=== PATIENT | female | born 1950 | race Caucasian/White ===

== ENCOUNTER 2020-10-10 18:41 | Emergency (ER) | payer MEDICARE, OTHER | END 2020-10-10 21:50 | disposition home or self-care (01) | LOC: CSHERS 18:41 | DX: K59.00 Constipation, unspecified (principal); E78.5 Hyperlipidemia, unspecified; E78.00 Pure hypercholesterolemia, unspecified; M19.90 Unspecified osteoarthritis, unspecified site; G47.30 Sleep apnea, unspecified | CPT/HCPCS: 74176 ==

== ENCOUNTER 2023-01-10 14:39 | Outpatient (CLI) | payer MEDICARE, OTHER | END 2023-01-10 14:40 | disposition home or self-care (01) | LOC: CSHMRI 14:39 | PROVIDERS: ATTEND Nurse Practitioner Family | DX: M25.551 Pain in right hip (principal); M16.11 Unilateral primary osteoarthritis, right hip ==

== ENCOUNTER 2023-11-13 11:31 | Outpatient (CLI) | payer MEDICARE, OTHER ==
[2023-11-13 12:53] LABS: Anion Gap 12 mmol/L (10-20); BUN (Urea Nitrogen) 11 mg/dL (9.8-20.1); Calc. Creatinine Clearance 0 mL/min (70-130); Calcium 9.3 mg/dL (7.8-10.44); Carbon Dioxide 31 mmol/L (23-31); Chloride 101 mmol/L (98-107); Estimated GFR 91; Glucose 103 mg/dL (83-110); Hematocrit 36.6 % (34.9-44.5); Hemoglobin 11.8 g/dL (12.0-15.5); Potassium 4.3 mmol/L (3.5-5.1); Sodium 140 mmol/L (136-145)
== END 2023-11-13 11:32 | disposition home or self-care (01) ==
LOC: CSHLAB 11:31
PROVIDERS: ATTEND Otolaryngology
DX: Z01.818 Encounter for other preprocedural examination (principal); J32.9 Chronic sinusitis, unspecified; J34.2 Deviated nasal septum; B47.9 Mycetoma, unspecified
CPT/HCPCS: 80048; 85014; 85018; 93005; 93010

== ENCOUNTER 2023-11-18 08:23 | Day surgery (SDC) | payer MEDICARE, OTHER ==
[2023-11-13 12:13] VITALS: BMI 21.7
[2023-11-18] MEDS ORDERED: Oxymetazoline HCl 0.05% ( 15 ML ) ONE ×2 (10:22→10:31)
[2023-11-18] MEDS ORDERED: Lidocaine 1% PF 5 ML VIAL ONE (11:02)
[2023-11-18] MEDS ORDERED: SUGAMMADEX SODIUM 200 MG/2 ML VIAL ONE (11:02)
[2023-11-18] MEDS ORDERED: Ondansetron PF 4 MG/2 ML Vial ONE (11:02)
[2023-11-18] MEDS ORDERED: fentaNYL 50 mcg/mL 1 mL Vial ONE ×2 (11:02→13:33)
[2023-11-18] MEDS ORDERED: PROPOFOL 40 ML ONE (11:02)
[2023-11-18] MEDS ORDERED: Rocuronium Bromide 10 MG/ML (10ML VIAL) ONE (11:02)
[2023-11-18] MEDS ORDERED: Dexamethasone 4 mg/ml Vial ONE (11:02)
[2023-11-18] MEDS ORDERED: Lidocaine 1% (PF) 30 ML VIAL ONE (11:12)
[2023-11-18] MEDS ORDERED: EPINEPHrine 1 MG/ML VIAL ONE ×2 (11:12→12:25)
[2023-11-18] MEDS ORDERED: Tranexamic Acid 1,000 MG/10 ML VIAL ONE (11:47)
[2023-11-18] MEDS ORDERED: Esmolol 100 MG/10 ML VIAL ONE (13:09)
[2023-11-18] MEDS ORDERED: Acetaminophen 325 MG TAB ONE (14:02)
== END 2023-11-18 14:30 | disposition home or self-care (01) ==
LOC: CSHSDC 08:23
PROVIDERS: ATTEND Otolaryngology
PROC: 09CX8ZZ Extirpation of Matter from Left Sphenoid Sinus, Via Natural or Artificial Opening Endoscopic (ICD-10-PCS; principal; 2023-11-18)
DX: J32.3 Chronic sphenoidal sinusitis (principal); B47.9 Mycetoma, unspecified; J34.2 Deviated nasal septum; J34.89 Other specified disorders of nose and nasal sinuses; G47.33 Obstructive sleep apnea (adult) (pediatric); F41.9 Anxiety disorder, unspecified; F32.A Depression, unspecified; Z96.659 Presence of unspecified artificial knee joint; Z96.619 Presence of unspecified artificial shoulder joint; Z88.0 Allergy status to penicillin; Z88.1 Allergy status to other antibiotic agents; Z88.6 Allergy status to analgesic agent; Z79.899 Other long term (current) drug therapy
CPT/HCPCS: 31287; C1776; J0171; J1100; J2405; J2704; J3010; 88304; 88312; J2001